=== PATIENT | female | born 1970 | race Two or more races ===

== ENCOUNTER 2020-04-04 08:08 | Emergency (ER) | payer SELFPAY ==
[~2020-04-04] VITALS: Ht 167.6 cm; Wt 86.1 kg
--- NOTE | 2020-04-04 08:21 | NUR ---
COUGH, DIARRHEA AND FEVER FOR 3 DAYS
--- NOTE | 2020-04-04 09:50 | NUR ---
TASK RN. PT D/C'D PER ORDERS. VERBALIZED UNDERSTANDING OF D/C ORDERS.
[2020-04-04 09:51] VITALS: BP 129/78
== END 2020-04-04 09:52 | disposition home or self-care (01) ==
LOC: ED 08:59
DX: U07.1 COVID-19 (principal); J06.9 Acute upper respiratory infection, unspecified; B34.9 Viral infection, unspecified
CPT/HCPCS: 71045; 87635; 99284